=== PATIENT | female | born 1985 | race African-American/Black ===

== ENCOUNTER 2022-03-24 12:25 | Emergency (ER) | payer MEDICAID, OTHER ==
[~2022-03-24] VITALS: Ht 160 cm; Wt 117.9 kg
[2022-03-24] MEDS ORDERED: SODIUM CHLORIDE 0.9% 1,000 ML IV ONE (13:00)
[2022-03-24 13:44] LABS: Basophils # (auto) 0.1 10 ^3/uL (0-0.2); Eosinophils # (auto) 0.2 10 ^3/uL (0-0.8); Monocytes # (auto) 0.7 10 ^3/uL (0-1.3); Red Blood Cells 4.76 10^6/uL (4.0-5.20)
[2022-03-24 13:48] LABS: Basophils % (auto) 0.5 % (0.0-2.0); Eosinophils % (auto) 1.8 % (0.0-7.0); Hematocrit 37.3 % (36.0-46.0); Hemoglobin 11.8 g/dL (12.2-16.2); Lymphocytes # (auto) 3.1 10 ^3/uL (0.4-5.4); Lymphocytes % (auto) 25.9 % (10.0-50.0); Mean Corpuscular Hemoglobin 24.8 pg (28.0-32.0); Mean Corpuscular Hgb Conc. 31.7 g/dL (32.0-36.0); Mean Corpuscular Volume 78.3 fL (80.0-100.0); Monocytes % (auto) 5.8 % (0.0-12.0); Nucleated Red Blood Cells % 0.2 %; Red Cell Distribution Width 17.2 % (11.8-14.3)
[2022-03-24 14:03] LABS: Potassium 4.5 mmol/L (3.5-5.1)
[2022-03-24 14:05] LABS: BUN/Creatinine Ratio 14.4
[2022-03-24 14:08] LABS: Bilirubin, Total 0.1 mg/dL (0.2-1.0)
[2022-03-24 14:28] LABS: Urine Bacteria FEW /hpf (None Seen); Urine Blood Negative /uL (Negative); Urine Mucus FEW (None Seen); Urine Specific Gravity 1.026 (1.001-1.035); Urine Sperm PRESENT /hpf (None Seen); Urine WBC 106 /hpf (0 - 5)
[2022-03-24] MEDS ORDERED: NITR-87 PO (16:20)
[2022-03-24 16:47] VITALS: BP 120/61
== END 2022-03-24 16:49 | disposition home or self-care (01) ==
LOC: ER 12:25
DX: K42.9 Umbilical hernia without obstruction or gangrene (principal); R10.2 Pelvic and perineal pain; N39.0 Urinary tract infection, site not specified
CPT/HCPCS: 36415; 74176; 80053; 81001; 84702; 85025